=== PATIENT | female | born 1980 | race Caucasian/White ===

== ENCOUNTER 2022-02-11 14:45 | Outpatient (RCR) | payer BC, SELFPAY | END 2022-03-21 10:02 | disposition home or self-care (01) | PROVIDERS: PCP Orthopaedic Surgery Sports Medicine; Visit Provider Physician Assistant Surgical | DX: M72.2 Plantar fascial fibromatosis (principal); Z51.89 Encounter for other specified aftercare | CPT/HCPCS: 97035; 97110; 97140; 97161 ==

== ENCOUNTER 2022-06-17 14:31 | Outpatient (CLI) | payer BC, SELFPAY | END 2022-06-17 14:32 | disposition home or self-care (01) | PROVIDERS: PCP Orthopaedic Surgery Sports Medicine; Visit Provider Family Medicine | DX: Z00.00 Encounter for general adult medical examination without abnormal findings (principal); R03.0 Elevated blood-pressure reading, without diagnosis of hypertension; R73.03 Prediabetes; E55.9 Vitamin D deficiency, unspecified; Z13.6 Encounter for screening for cardiovascular disorders; Z79.899 Other long term (current) drug therapy | CPT/HCPCS: 80053; 80061; 82306; 82607; 84443 ==

== ENCOUNTER 2022-07-04 06:55 | Outpatient (CLI) | payer BC, SELFPAY ==
--- NOTE | 2022-07-04 08:26 | W.ANESCHARGE ---
Anesthesia Charges Start Date/Time Anesthesia Start Date: 07/04/22 Anesthesia Start Time: 08:03 Stop Date/Time Anesthesia Stop Date: 07/04/22 Anesthesia Stop Time: 08:21
--- NOTE | 2022-07-04 08:36 | W.ANESCHARGE ---
Anesthesia Charges Start Date/Time Anesthesia Start Date: 07/04/22 Anesthesia Start Time: 08:03 Stop Date/Time Anesthesia Stop Date: 07/04/22 Anesthesia Stop Time: 08:21
[2022-07-04 10:51] LABS: Ur HCG Qualitative* Negative (Negative)
== END 2022-07-04 06:56 | disposition home or self-care (01) ==
LOC: OP CLINIC 06:55
PROVIDERS: PCP Family Medicine; Visit Provider Internal Medicine
DX: R13.10 Dysphagia, unspecified (principal); K22.2 Esophageal obstruction
CPT/HCPCS: 00731; 43249; 81025; J2704; J3490

== ENCOUNTER 2022-09-18 15:00 | Outpatient (CLI) | payer BC, SELFPAY | END 2022-09-18 15:01 | disposition home or self-care (01) | LOC: NFLDREF 09-19 09:30 | PROVIDERS: PCP Family Medicine; Referring Provider Family Medicine; Visit Provider Internal Medicine | DX: A04.8 Other specified bacterial intestinal infections (principal) | CPT/HCPCS: 87338 ==

== ENCOUNTER 2022-10-03 11:17 | Outpatient (CLI) | payer BC, SELFPAY ==
--- NOTE | 2022-10-03 11:30 | CRLHL7_ITS ---
For Patients: As a result of the Century Cures Act, medical imaging exams and procedure reports are released immediately into your electronic medical record. You may view this report before your referring provider. If you have questions, please contact your health care provider. BILATERAL SCREENING MAMMOGRAM WITH COMPUTER-AIDED DETECTION AND TOMOSYNTHESIS TECHNIQUE: CC and MLO views were obtained. These mammographic images have been obtained using full-field digital technique. These mammographic images were interpreted with the benefit of computer-aided detection. Breast tomosynthesis was used in this interpretation. COMPARISON FILM: 08/12/21. FINDINGS: There are scattered areas of fibroglandular density. IMPRESSION: There is no radiographic evidence for malignancy. ASSESSMENT: BI-RADS Category 1: Negative RECOMMENDATION: Routine screening mammogram in 1 year. A lay language report of this examination will be provided to the patient. JOSH CHO M.D. Diagnostic Radiologist [email or web address] Transcribed: 10/03/2022, 3:[address]/Dictated by: Josh Cho MD @ 10/03/2022 12:39:00 PM (Electronically Signed)
== END 2022-10-03 11:18 | disposition home or self-care (01) ==
LOC: MAMMO 11:18
PROVIDERS: PCP Family Medicine; Visit Provider Family Medicine
DX: Z12.31 Encounter for screening mammogram for malignant neoplasm of breast (principal)
CPT/HCPCS: 77063; 77067

== ENCOUNTER 2023-07-14 08:35 | Outpatient (CLI) | payer BC, SELFPAY | END 2023-07-14 08:36 | disposition home or self-care (01) | LOC: NFLDREF 07-15 10:22 | PROVIDERS: PCP Family Medicine; Referring Provider Family Medicine; Visit Provider Family Medicine | DX: E53.8 Deficiency of other specified B group vitamins (principal); E55.9 Vitamin D deficiency, unspecified; R73.03 Prediabetes; Z13.220 Encounter for screening for lipoid disorders | CPT/HCPCS: 80053; 80061; 82306; 82607 ==

== ENCOUNTER 2023-11-02 11:12 | Outpatient (CLI) | payer BC, SELFPAY ==
--- NOTE | 2023-11-02 11:30 | CRLHL7_ITS ---
For Patients: As a result of the Century Cures Act, medical imaging exams and procedure reports are released immediately into your electronic medical record. You may view this report before your referring provider. If you have questions, please contact your health care provider. BILATERAL SCREENING MAMMOGRAM WITH COMPUTER-AIDED DETECTION AND TOMOSYNTHESIS TECHNIQUE: CC and MLO views were obtained. These mammographic images have been obtained using full-field digital technique. These mammographic images were interpreted with the benefit of computer-aided detection. Breast Tomosynthesis was used in this interpretation. COMPARISON FILM: 10/03/22, 08/12/22. FINDINGS: There are scattered areas of fibroglandular density. IMPRESSION: There is no radiographic evidence for malignancy. ASSESSMENT: BI-RADS Category 1: Negative RECOMMENDATION: Routine screening mammogram in 1 year. A lay language report of this examination will be provided to the patient. Josh Fountain M.D. Diagnostic Radiologist [email or web address] SP/Dictated by: Josh Fountain MD @ 11/02/2023 12:12:00 PM (Electronically Signed)
== END 2023-11-02 11:13 | disposition home or self-care (01) ==
LOC: MAMMO 11:13
PROVIDERS: PCP Family Medicine; Visit Provider Family Medicine
DX: Z12.31 Encounter for screening mammogram for malignant neoplasm of breast (principal)
CPT/HCPCS: 77063; 77067

== ENCOUNTER 2024-07-14 09:02 | Outpatient (CLI) | payer BC, SELFPAY | END 2024-07-14 09:03 | disposition home or self-care (01) | LOC: NFLDREF 07-18 00:05 | PROVIDERS: PCP Family Medicine; Referring Provider Family Medicine; Visit Provider Family Medicine | DX: M81.0 Age-related osteoporosis without current pathological fracture (principal); E55.9 Vitamin D deficiency, unspecified; R73.03 Prediabetes; E78.5 Hyperlipidemia, unspecified | CPT/HCPCS: 80053; 80061; 82306 ==

== ENCOUNTER 2024-10-18 09:01 | Outpatient (CLI) | payer BC, SELFPAY | END 2024-10-18 09:02 | disposition home or self-care (01) | LOC: NFLDREF 10-20 14:37 | PROVIDERS: PCP Family Medicine; Referring Provider Family Medicine; Visit Provider Family Medicine | DX: R79.89 Other specified abnormal findings of blood chemistry (principal) | CPT/HCPCS: 80076 ==

== ENCOUNTER 2024-11-02 12:52 | Outpatient (CLI) | payer BC, SELFPAY ==
--- NOTE | 2024-11-02 13:20 | CRLHL7_ITS ---
For Patients: As a result of the Century Cures Act, medical imaging exams and procedure reports are released immediately into your electronic medical record. You may view this report before your referring provider. If you have questions, please contact your health care provider. INDICATION: BILATERAL SCREENING MAMMOGRAM, ASYMPTOMATIC 44 Y/O FEMALE COMPARISON: 11/02/2023, 10/03/2022, 08/12/2021 TECHNIQUE: Digital mammogram in CC and MLO projections including computer-aided detection (CAD) and tomosynthesis. BREAST COMPOSITION: There are scattered areas of fibroglandular density. FINDINGS: No suspicious findings. ASSESSMENT: BI-RADS 1 Negative RECOMMENDATION: Annual screening mammogram. A lay language report of this examination will be provided to the patient. Dictated by: Josh Fountain MD @ 11/03/2024 08:13:32 (Electronically Signed)
== END 2024-11-02 12:53 | disposition home or self-care (01) ==
LOC: MAMMO 12:53
PROVIDERS: PCP Family Medicine; Visit Provider Family Medicine
DX: Z12.31 Encounter for screening mammogram for malignant neoplasm of breast (principal)
CPT/HCPCS: 77063; 77067